=== PATIENT | male | born 1950 | race Caucasian/White ===

== ENCOUNTER 2017-01-07 13:16 | Inpatient (IN) | payer OTHER ==
[2017-01-07] MEDS ORDERED: NS 1,000 ML IV ONE (13:23)
[2017-01-07] MEDS ORDERED: ASPIRIN 81 MG CHEWABLE TAB ONE (13:29)
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
[2017-01-07] MEDS ORDERED: NITROGLYCERIN 0.4 MG BTL SL ONE ×3 (13:30→13:35)
--- NOTE | 2017-01-07 13:34 | CPEKG ---
Heart Rate: 77 RR Interval: 779 P-R Interval: 196 QRSD Interval: 102 QT Interval: 412 QTC Interval: 467 P [place]: 82 QRS [place]: 8 T Wave [place]: 4 EKG Severity - ABNORMAL ECG - EKG Impression: SINUS RHYTHM EKG Impression: ANTERIOR INJURY, EARLY ACUTE INFARCT Electronically Signed By: Afshan Ocampo 07-Jan-2017 21:20:14
[2017-01-07] MEDS ORDERED: ASPIRIN 81 MG CHEWABLE TAB PO ONE (13:35)
[2017-01-07] MEDS ORDERED: fentaNYL 100 MCG/2 ML INJ ONE ×2 (13:36→14:27)
[2017-01-07] MEDS ORDERED: LIDOCAINE 1% 30 ML SDV ONE (13:36)
[2017-01-07 13:37] LABS: % IMMATURE GRANULYOCYTES 0.4 % (0.0-1.1); ABSOLUTE IMMATURE GRANULOCYTES 0.06 10^3/uL (0.00-0.10); ADD DIFF? NO; ADD MORPH? NO; ADD SCAN? NO; ATYPICAL LYMPHOCYTE FLAG 10 (0-99); FRAGMENT RBC FLAG 0 (0-99); HEMATOCRIT 45.5 % (40.0-51.0); HEMOGLOBIN 16.7 g/dL (13.7-17.5); LEFT SHIFT FLG 0 (0-99); LIPEMIA HEMOLYSIS FLAG 90 (0-99); MEAN CELL HEMOGLOBIN 31.4 pg (27.9-34.1); MEAN CELL HEMOGLOBIN CONCENTR. 36.7 g/dL (32.4-36.7); MEAN CELL VOLUME 85.5 fL (81.5-99.8); PLATELET CLUMPS FLAG 10 (0-99); PLATELET COUNT 201 10^3/uL (150-400); RED BLOOD CELL COUNT 5.32 10^6/uL (4.40-6.38)
[2017-01-07] MEDS ORDERED: IOPAMIDOL (ISOVUE 370) 100 ML BTL IV ONE ×2 (13:37→14:19)
[2017-01-07] MEDS ORDERED: HEPARIN 10,000 UNIT/10 ML MDV ONE (13:37)
[2017-01-07] MEDS ORDERED: BIVALIRUDIN 250 MG/5 ML VIAL IV ONE (13:37)
[2017-01-07] MEDS ORDERED: MIDAZOLAM 2 MG/2 ML VIAL ONE ×2 (13:37→14:27)
[2017-01-07] MEDS ORDERED: NITROGLYCERIN 1,500 MCG/15 ML VIAL MISC ONE (13:38)
[2017-01-07] MEDS ORDERED: NITROGLYCERIN/D5W 50 MG/250 ML BOTTLE IV ONE (13:43)
[2017-01-07] MEDS ORDERED: NITROGLYCERIN 0.4 MG BTL SL PRN ×2 (13:45→15:56)
[2017-01-07] MEDS ORDERED: METOPROLOL TARTRATE 5 MG/5 ML INJ IVP ONE (13:45)
[2017-01-07] MEDS ORDERED: LORazepam 2 MG/ML INJ IVP ONE (13:45)
[2017-01-07] MEDS ORDERED: NITROGLYCERIN/DEXTROSE 250 ML IV ONE (13:46)
[2017-01-07 13:53] LABS: ANION GAP 17 mEq/L (8-16); CALCIUM 10.2 mg/dL (8.5-10.4); CARBON DIOXIDE 20 mEq/l (22-31); CHLORIDE 105 mEq/L (97-110); CREATININE 1.3 mg/dL (0.7-1.3); GLOMERULAR FILTRATION RATE 55; GLUCOSE 134 mg/dL (70-100); POTASSIUM 3.7 mEq/L (3.5-5.2); SODIUM 142 mEq/L (134-144)
[2017-01-07 14:05] LABS: TROPONIN I < 0.012 ng/mL (0-0.034)
[2017-01-07] MEDS ORDERED: AMIODARONE HCL 150 MG/3 ML VIAL ONE (14:26)
[2017-01-07] MEDS ORDERED: PHENYLEPHRINE 10 MG/ML SDV ONE (14:36)
[2017-01-07] MEDS ORDERED: PHENYLEPHRINE HCL 100 MCG/ML SYR ONE (14:37)
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
[2017-01-07] MEDS ORDERED: PRASUGREL HCL 10 MG TAB ONE (15:02)
[2017-01-07] MEDS ORDERED: POTASSIUM Cl (KCl) 10 MEQ/100 ML BAG IV ONE (15:19)
[2017-01-07] MEDS ORDERED: ACETAMINOPHEN 325 MG TAB PO PRN (15:56)
[2017-01-07] MEDS ORDERED: PRASUGREL HCL 10 MG TAB PO ONE (15:56)
[2017-01-07] MEDS ORDERED: TEMAZEPAM 15 MG CAP PO PRN (15:56)
[2017-01-07] MEDS ORDERED: ONDANSETRON 4 MG/2 ML VIAL IVP PRN (15:56)
[2017-01-07] MEDS ORDERED: ATROPINE SULFATE 1 MG/10 ML SYR IVP PRN (15:56)
[2017-01-07] MEDS ORDERED: LORazepam 2 MG/ML INJ IVP PRN (15:56)
[2017-01-07] MEDS ORDERED: NS 1,000 ML IV SCH (16:00)
[2017-01-07] MEDS ORDERED: HEPARIN 10,000 UNIT/10 ML MDV IVP ONE (16:19)
[2017-01-07] MEDS ORDERED: HEPARIN 10,000 UNIT/10 ML MDV IVP PRN (16:19)
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
--- NOTE | 2017-01-07 17:07 | CPEKG ---
Heart Rate: 68 RR Interval: 882 P-R Interval: 212 QRSD Interval: 100 QT Interval: 412 QTC Interval: 439 P Bard: 77 QRS Bard: 69 T Wave Bard: 66 EKG Severity - BORDERLINE ECG - EKG Impression: SINUS RHYTHM EKG Impression: BORDERLINE T ABNORMALITIES, ANT-LAT LEADS EKG Impression: PREVIOUS ST ELEVATION NOW ABSENT Electronically Signed By: Aly Hamilton 07-Jan-2017 18:24:19
[2017-01-07] MEDS: HEPARIN/DEXTROSE 500 ML IV SCH (17:27)
[2017-01-07] MEDS: ATORVASTATIN CALCIUM 40 MG TAB PO SCH (17:49)
[2017-01-07] MEDS: CARVEDILOL 3.125 MG TAB PO SCH (17:49)
--- NOTE | 2017-01-07 17:52 | PDDXCAT ---
Diagnostic Cath Note - . 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 LAD: Proximal 100% occlusion. LCX: Minimal irregularities. RCA: Minimal irregularities. EDP: 27 mmHg LVEF: 25 to 30% Wall motion: Severe anterolateral and apical hypokinesis Estimated blood loss: <50ml Closure method: other (Sheath with IABP in place in RFA.) Assessment: 1) Acute anterior STEMI. 2) CAD as described above. 3) Successful PCI of the LAD using a single drug-coated stent. 4) Ischemic cardiomyopathy with severely reduced LV systolic function. Plan: Aggressive secondary prevention. Intervention: Based on the patient's clinical presentation and diagnostic angiography, the decision was made to perform emergent PCI of the left anterior descending. The patient received intravenous Angiomax. A 6 Canadian CLS 3.5 guide catheter was advanced to the left main. An Intuition guidewire was advanced to the apical portion of the LAD. A single pass was performed with a Pronto aspiration catheter. Subsequent angiograms demonstrated roman catholic of JACKIE-III flow. The elapsed time from the patient's arrival to the hospital until the delivery of the first reperfusion device was 67 minutes. At this point the patient experienced reperfusion arrhythmia in the form of sustained ventricular tachycardia. Two synchronized shocks were required to restore normal sinus rhythm. A 300 mg bolus of intravenous amiodarone was administered. A few minutes later there was another episode of sustained ventricular tachycardia that required a single synchronized shock. Angiograms at this point demonstrated residual stenosis in the proximal LAD 0f 60-70% located immediately proximal to the origin of the first diagonal branch and a large septal screw machine tool setter. There was moderate disease up to 40-50% just after the origins of the diagonal and septal. Distally, the LAD exhibited minimal irregularities. Predilatation of the proximal LAD was performed using a 3.0 x 12 mm Emerge balloon. The decision was made to place a stent in the proximal LAD encompassing the target lesion and terminating just prior to the origins of the diagonal and septal in order to avoid placing them in "stent snf". A 3.5 x 20 mm Synergy stent was advanced into position and was deployed at high pressure. Final angiograms demonstrated 0% residual stenosis and JACKIE-III flow. Left ventriculography was performed demonstrating a significant ischemic cardiomyopathy. The patient had hypotension with a systolic pressure of 80 mmHg. He had received 2 intravenous boluses Myron-Synephrine during the interventional portion of the procedure. Based on his hemodynamics and left ventricular function, the decision was made to place an intra-aortic balloon pump. The previously placed 6 Canadian sheath in the right femoral artery was exchanged for an 8 Canadian sheath. A 40 cc intra-aortic balloon pump catheter was advanced into position confirmed by fluoroscopy. Counterpulsation was initiated and cineangiography confirmed full inflation. Patient Problems: Problems Problem Status Onset STEMI (ST elevation myocardial infarction) Acute
[2017-01-07 17:59] LABS: INR 1.64 (0.83-1.16); PROTIME(PATIENT) 19.5 SEC (12.0-15.0)
[2017-01-07 18:05] LABS: CHOLESTEROL 167 mg/dL (140-220); CHOLESTEROL/HDL RATIO 3.63 RATIO (1.00-4.97); HIGH DENSITY LIPOPROTEIN 46 mg/dL (40-65); LDL/HDL RATIO 2.28 RATIO (1.00-3.64); LOW DENSITY LIPOPROTEIN 105 mg/dL (80-100); MAGNESIUM 2.1 mg/dL (1.6-2.3); NON-HIGH DENSITY LIPOPROTEIN 121 mg/dL (90-129); TRIGLYCERIDE 81 mg/dL (40-150); VERY LOW DENSITY LIPOPROTEINS 16 mg/dL (8-25)
[2017-01-07] MEDS ORDERED: SODIUM CL NASAL 45 ML BTL EACHNARE PRN (18:21)
[2017-01-07 18:36] LABS: APTT > 250.0 SEC (23.0-38.0)
[2017-01-07 19:13] LABS: CK-MB INTERPRETATION POSITIVE (NEGATIVE)
[2017-01-07 19:46] LABS: POTASSIUM 4.2 mEq/L (3.5-5.2)
[2017-01-07] MEDS: FAMOTIDINE 20 MG/NACL 50 ML IV SCH (20:15)
[2017-01-07 22:24] LABS: HEMATOCRIT 37.7 % (40.0-51.0); HEMOGLOBIN 13.5 g/dL (13.7-17.5)
[2017-01-08 01:42] LABS: HEMOGLOBIN A1C 5.4 % (4.0-6.0)
[2017-01-08 04:42] LABS: % IMMATURE GRANULYOCYTES 0.4 % (0.0-1.1); ABSOLUTE IMMATURE GRANULOCYTES 0.04 10^3/uL (0.00-0.10); ADD DIFF? NO; ADD MORPH? NO; ADD SCAN? NO; ATYPICAL LYMPHOCYTE FLAG 10 (0-99); FRAGMENT RBC FLAG 0 (0-99); HEMATOCRIT 36.8 % (40.0-51.0); HEMOGLOBIN 13.3 g/dL (13.7-17.5); LEFT SHIFT FLG 0 (0-99); LIPEMIA HEMOLYSIS FLAG 90 (0-99); MEAN CELL HEMOGLOBIN 32.3 pg (27.9-34.1); MEAN CELL HEMOGLOBIN CONCENTR. 36.1 g/dL (32.4-36.7); MEAN CELL VOLUME 89.3 fL (81.5-99.8); MEAN PLATELET VOLUME 10.7 fL (8.7-11.7); PLATELET CLUMPS FLAG 10 (0-99); PLATELET COUNT 119 10^3/uL (150-400); RED BLOOD CELL COUNT 4.12 10^6/uL (4.40-6.38); RED CELL DISTRIBUTION WIDTH 12.6 % (11.5-15.2)
[2017-01-08 04:55] LABS: ALBUMIN 3.1 g/dL (3.5-5.0); ASPARTATE AMINOTRANSFERASE 156 IU/L (17-59); BILIRUBIN,TOTAL 1.3 mg/dL (0.1-1.4); CALCIUM 8.1 mg/dL (8.5-10.4); CARBON DIOXIDE 21 mEq/l (22-31); CHLORIDE 112 mEq/L (97-110); GLOMERULAR FILTRATION RATE > 60; GLUCOSE 105 mg/dL (70-100); LACTATE DEHYDROGENASE 835 IU/L (313-618); SODIUM 142 mEq/L (134-144)
[2017-01-08 05:01] LABS: MAGNESIUM 2.1 mg/dL (1.6-2.3)
[2017-01-08 05:25] LABS: ANION GAP 9 mEq/L (8-16); POTASSIUM 3.6 mEq/L (3.5-5.2)
[2017-01-08] MEDS: LISINOPRIL 2.5 MG TAB PO SCH (08:29)
[2017-01-08] MEDS: ASPIRIN EC 325 MG TAB PO SCH (08:29)
[2017-01-08] MEDS: CARVEDILOL 3.125 MG TAB PO SCH ×2 (08:29→17:43)
[2017-01-08] MEDS: ATORVASTATIN CALCIUM 40 MG TAB PO SCH (08:30)
[2017-01-08] MEDS: PRASUGREL HCL 10 MG TAB PO SCH (08:30)
[2017-01-08] MEDS: FAMOTIDINE 20 MG/NACL 50 ML IV SCH (08:30)
--- NOTE | 2017-01-08 08:37 | CPEKG ---
Heart Rate: 75 RR Interval: 800 P-R Interval: 176 QRSD Interval: 96 QT Interval: 424 QTC Interval: 474 P Vina: 26 QRS Vina: 70 T Wave Vina: 59 EKG Severity - NORMAL ECG - EKG Impression: SINUS RHYTHM Electronically Signed By: Bucky Mchugh 08-Jan-2017 09:16:22
[2017-01-08 08:42] LABS: CK-MB INTERPRETATION POSITIVE (NEGATIVE)
[2017-01-08] MEDS ORDERED: PROTOCOL POTASSIUM 1 DOSE MISC PRN (09:18)
[2017-01-08] MEDS ORDERED: PROTOCOL MAGNESIUM 1 DOSE IV PRN (09:18)
[2017-01-08] MEDS ORDERED: POTASSIUM CL 10 MEQ TAB PO ONE ×2 (09:43→18:00)
--- NOTE | 2017-01-08 10:04 | ECHO ---
[id number] + + [address] : : [place] [address] : : [phone] + + Adult Echocardiographic Report + ------+ :Name: BETHEL MOSS Natasha Date: 01/08/2017 07:34 AM : : Hospital Admission Number: [id number] Locatio n: 252: :: 1950 Gender: Male Height: 72 in : :Age: 66 yrs Race: WH,PTTC Weight: 165 lb : :Reason For Study: Eval LV Fx : : BSA: 2.0 meters 2 : :History: S/P anterior CA : + ------+ MMode/2D Measurements \T\ Calculations IVSd: 0.96 cm LVIDd: 5.1 cm FS: 12.8 % Ao root diam: LVPWd: 0.91 cm LVIDs: 4.4 cm EDV(Teich): 3.5 cm 121.4 ml ACS: 1.9 cm ESV(Teich): 88.1 ml EF(Teich): 27.4 % LVLd ap4: 7.3 cm SV(MOD-sp4): EDV(MOD-sp4): 26.0 ml 81.0 ml LVLs ap4: 7.6 cm ESV(MOD-sp4): 55.0 ml EF(MOD-sp4): 32.1 % Normal Measurement Values: + + :LVIDd (3.5-5.7cm) IVSd (0.6-1.1cm) LVPWd (0.6-1.1cm) Aortic Root (2.0-3.7cm)Left Atrium (1.5-4.0cm): :LV Vol(d) (76-115ml) LV Vol(s) (29-48ml) Ejec Fraction (50-65%)PV Tab (0.6- 1.2m/s) TV Tab (0.4-1.0m/s) : :MV E Tab (0.8-1.0m/s)MV A Tab (0.3-1.0m/s)LVOT Tab (0.7-1.2m/s) Asc Ao Tab ( 0.9-1.8m/s) : + + Doppler Measurements \T\ Calculations MV E max tab: Ao V2 max: AI max tab: LV V1 max: 76.0 cm/sec 92.3 cm/sec 232.8 cm/sec 81.4 cm/sec MV A max tab: Ao max PG: AI max P.7 mmHg LV V1 max P.3 cm/sec 3.4 mmHg AI dec slope: 2.7 mmHg MV E/A: 1.5 143.1 cm/sec2 AI P1/2t: 476.4 msec PA V2 max: TR max tab: 73.3 cm/sec 252.5 cm/sec PA max PG: TR max P.1 mmHg 25.5 mmHg RAP systole: 5.0 mmHg RVSP(TR): 30.5 mmHg Left Ventricle The left ventricle is normal in size. There is normal left ventricular wall thickness. There is basilar to anteroseptal hypokinesis. Ejection Fraction = 25-30%. There is moderate anterior wall akinesis. There is apical hypokinesis. Right Ventricle The right ventricle is normal in size and function. Atria The left atrial size is normal. Right atrial size is normal. Mitral Valve The mitral valve is normal in structure and function. There is mild mitral regurgitation. Tricuspid Valve Normal tricuspid valve. There is trace tricuspid regurgitation. Right ventricular systolic pressure is normal. Aortic Valve The aortic valve is normal in structure and function. The aortic valve is trileaflet. There is no aortic stenosis. Mild aortic regurgitation. Pulmonic Valve The pulmonic valve is not well visualized. There is no pulmonic valvular regurgitation. Great Vessels The aortic root is normal size. Pericardium/Pleural There is no pericardial effusion. Conclusion A complete two-dimensional transthoracic echocardiogram was performed (2D, M-mode, Doppler and color flow Doppler). (1) Left ventricular systolic ejection fraction was moderately to severely reduced - there is moderate anterior (mid to apical) akinesis noted - there is moderate anteroseptal hypokinesis noted (2) No left ventricular hypertrophy (3) Diastolic function was not clearly assessed in this study (4) Grossly normal right ventricular size and function (5) Grossly normal atrial dimensions (6) Mild mitral regurgitation (7) Trileaflet aortic valve with mild insufficiency, but no sclerosis or stenosis (8) Physiologic tricuspid regurgitation - RVSP was grossly normal (9) Poor visualization of the pulmonic valve (10) No pericardial effusion (11) No comparison echocardiograms Final Reading Physician: Richi Irizarry signed on 01/08/2017 10:03 AM Ordering Physician: Bucky Mchugh Performed By: Keyur Cr, RDCS
--- NOTE | 2017-01-08 10:44 | PDCARPN ---
Cardiology Progress Note Chief Complaint: chest pain with syncope in setting of large anterior myocardial infarction Assessment/Plan: Assessment: Patient is a 66 y/o male with history of HTN, who presented to [facility] as an acute, anterior myocardial infarction. Patient was taken to the cardiac lab nurse yesterday with PCI to thrombosed LAD. Ongoing use of IABP. Echocardiogram this morning with ongoing suppression of LVEF (25-30%) with severe anterior/ anteroapical/anteroseptal akinesis. No voiced complaints at present. VT was noted yesterday in the lab nurse with a 20 beat run in the ICU also noted last night. was at bedside. Plan: (1) Would continue IABP for about 24 hours - plan on cessation of therapy in mid afternoon (2) Maintain therapy on Coreg and Zestril for history of ID with anterior wall motion abnormality (3) Statins should continue for HLP (4) ASA for life with CAD/PCI history (5) Effient should continue for minimum of one year (6) Cardiac rehab to be arranged (7) Likely outpatient echocardiogram in 7-10 days (8) Given the events and the ventricular ectopy noted, the patient will need to be fit with a Life Vest for ventricular arrhythmic protection Subjective: No voiced cardiovascular complaints today. No chest pains or pressure. Ongoing back pains (patient typically stretches his back in the morning, but has been unable to to that with the IABP and lines). Reviewed/Discussed With: family, multidisciplinary team Time Spent With Patient: 20 minutes Objective: Vital Signs (8 Hrs) Temp Pulse Resp BP Pulse Ox 01/08/17 10:00 65 14 124/61 H 99 01/08/17 09:00 69 21 H 122/60 H 1 L 01/08/17 08:29 74 127/61 H 01/08/17 08:00 37.3 C 69 17 128/65 H 100 01/08/17 07:00 72 15 108/62 1 L 01/08/17 06:00 37.3 C 68 8 L 110/47 L 100 01/08/17 05:00 37.3 C 67 13 107/45 L 99 01/08/17 04:00 37.2 C 70 18 99/42 L 98 01/08/17 03:00 37.2 C 73 13 106/47 L 97 Intake/Output (24 Hrs) 01/07/17 01/08/17 01/09/17 05:59 05:59 05:59 Intake Total 2526.7 Output Total 1000 60 Balance 1526.7 -60 Intake: Oral (ml) 150 IV Infused (ml) 2376.7 Heparin/Dextrose 500 ml @ 286.7 Per Protocol IV CONT NICOLE Rx#:[id number] Ns 1,000 ml @ 100 mls/hr 1090 IV CONT NICOLE Rx#: [id number] Output: Urine (ml) 1000 60 Catheter 1000 60 Other: Weight 70.307 kg Result Diagrams: 01/08/17 04:05 01/08/17 04:05 Cardiac Labs: Cardiac Lab Results (72 Hrs) 01/08/17 01/07/17 08:00 17:43 CK-MB (CK-2) Fraction 85.40 H 40.80 H Troponin I 27.400 H 6.960 H Telemetry: normal sinus rhythm with ST/T wave changes to the anterior leads Echocardiogram: from 01-08-17 with severe suppression of the LVEF (25-30%) and severe hypo/ akinesis to the anterior wall - Physical Exam Constitutional: WDWN, healthy appearing, no apparent distress Eyes: PERRL, EOMI Ears, Nose, Mouth, Throat: moist mucous membranes Cardiovascular: regular rate and rhythm, no murmurs, no rubs, no gallops, No jugular vein distention Peripheral Pulses: 2+: dorsalis-pedis (R), dorsalis-pedis (L) Respiratory: clear to auscultate bilat, no crackles, no wheezes Gastrointestinal: normoactive bowel sounds Skin: other (right knuckle abrasion. left knee abrasion) Musculoskeletal: no muscular tenderness, no joint effusions Neurologic: AAOx3, CN II-XII grossly intact Psychiatric: cooperative, interactive, following commands ICD10 Worksheet Patient Problems: Problems Problem Status Onset STEMI (ST elevation myocardial infarction) Acute
[2017-01-08] MEDS: HEPARIN/DEXTROSE 500 ML IV SCH (13:07)
[2017-01-08] MEDS: HYDROCODONE/APAP 5/325 TAB PO PRN ×3 (13:27→18:15)
[2017-01-08] MEDS ORDERED: NS 1,000 ML IV SCH (15:00)
--- NOTE | 2017-01-08 15:21 | PDINTPN ---
Spd Tech Progress Note Assessment/Plan: Assessment/plan: 66 active M s/p syncopal event while cycling on [place], found to have acute STEMI with reduced EF and required LAD stent as well as IABP. No pressors required at the moment. * STEMI- management primarily per cards. IABP remains for another 24 hours as echo shows persistent EF 25-30%. Remains on Carvedilol, Lisinopril. * Syncope 2/2 above. 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 Remains on NSR currently with occasional PVCs per RN. Did not require amiodarone * Objective: Vital Signs Temp Pulse Resp BP Pulse Ox 37.5 C 64 12 117/57 L 99 01/08/17 14:00 01/08/17 14:00 01/08/17 14:00 01/08/17 14:00 01/08/17 14:00 Laboratory Results 01/08/17 04:05 01/08/17 04:05 01/07/17 01/08/17 01/09/17 05:59 05:59 05:59 Intake Total 2526.7 Output Total 1000 260 Balance 1526.7 -260 PT 19.5 SEC (12.0-15.0) H 01/07/17 17:43 INR 1.64 (0.83-1.16) H 01/07/17 17:43 Physical Exam - Physical Exam General Appearance: WD/WN, alert, no apparent distress EENT: PERRL/EOMI, normal ENT inspection Neck: full range of motion, supple Respiratory: lungs clear, normal breath sounds, No respiratory distress Cardiac/Chest: normal peripheral pulses, regular rate, rhythm, No edema Abdomen: normal bowel sounds, non-tender, soft, No distended Skin: normal color, warm/dry, No cyanosis Lymphatic: no adenopathy Extremities: normal range of motion, non-tender, other (no hematoma at sheath site in left inguinal) Neuro/Psych: no motor/sensory deficits, alert, normal mood/affect, oriented x 3 ICD10 Worksheet Patient Problems: Problems Problem Status Onset STEMI (ST elevation myocardial infarction) Acute
[2017-01-08] MEDS ORDERED: MAGNESIUM SULF 2 GM/WATER 50 ML IV ONE (17:00)
[2017-01-08 17:17] LABS: POTASSIUM 3.9 mEq/L (3.5-5.2)
--- NOTE | 2017-01-08 17:36 | SUROPNOTE ---
IBLLY Operative Report - Surgery PROCEDURE: Removal of the IABP REASON: 24 hour use of this therapy without patient need at present DETAILS: Heparin was stopped and FemStop was positioned. Sutures were removed and sheath with balloon were removed without difficulty. Manual pressure was held for 7 minutes, and the FemStop was positioned accordingly and inflated to 20 mm Hg higher than patient's systolic pressure. Distal pulses were monitored and the instructions for FemStop were placed in the orders.
[2017-01-08] MEDS: FAMOTIDINE 20 MG TAB PO SCH (20:04)
[2017-01-09 04:38] LABS: HEMATOCRIT 35.2 % (40.0-51.0); HEMOGLOBIN 12.4 g/dL (13.7-17.5); MEAN CELL HEMOGLOBIN 31.9 pg (27.9-34.1); MEAN CELL HEMOGLOBIN CONCENTR. 35.2 g/dL (32.4-36.7); MEAN CELL VOLUME 90.5 fL (81.5-99.8); RED BLOOD CELL COUNT 3.89 10^6/uL (4.40-6.38); RED CELL DISTRIBUTION WIDTH 12.5 % (11.5-15.2)
[2017-01-09 04:56] LABS: MAGNESIUM 2.2 mg/dL (1.6-2.3); POTASSIUM 3.8 mEq/L (3.5-5.2)
--- NOTE | 2017-01-09 08:48 | CPEKG ---
Heart Rate: 73 RR Interval: 822 P-R Interval: 172 QRSD Interval: 102 QT Interval: 420 QTC Interval: 463 P Rumford: 67 QRS Rumford: 56 T Wave Rumford: 92 EKG Severity - ABNORMAL ECG - EKG Impression: SINUS RHYTHM EKG Impression: ABNORMAL T, CONSIDER ISCHEMIA, LATERAL LEADS Electronically Signed By: Bucky Mchugh 10-Jan-2017 09:28:21
--- NOTE | 2017-01-09 09:59 | PDCARPN ---
Cardiology Progress Note Chief Complaint: No complaints this morning. Back pains post IABP pull last night led to a CT to rule out retroperitoneal haematoma (negative study) Assessment/Plan: Assessment: 01-09-17 No cardiovascular complaints this morning. Patient doing much better post IABP pull last night. No chest pains or pressure, no PND or orthopnea. Distal pulses to the lower extremities were 2+ bilaterally. Patient has been up today (eating) and had done well with this activity. No further episodes of ventricular tachycardia have been noted overnight. 01-08-17 Patient is a 66 y/o male with history of HTN, who presented to [facility] as an acute, anterior myocardial infarction. Patient was taken to the cardiac laborer syrup machine yesterday with PCI to thrombosed LAD. Ongoing use of IABP. Echocardiogram this morning with ongoing suppression of LVEF (25-30%) with severe anterior/ anteroapical/anteroseptal akinesis. No voiced complaints at present. VT was noted yesterday in the laborer syrup machine with a 20 beat run in the ICU also noted last night. was at bedside. Plan: (1) Continue therapy on Coreg and Zestil for ischaemia CMP noted (2) Would continue therapy on ASA for life - Effient for minimum of one year (3) Statins for HLP and CAD/PCI history (4) Cardiac rehab has been contacted (5) Will move patient to the PCU and monitor tele (6) Patient to be discharged with Life Vest given the ventricular ectopy that was noted with this event Subjective: No cardiovascular complaints Reviewed/Discussed With: family, multidisciplinary team Time Spent With Patient: 20 minutes Objective: Vital Signs (8 Hrs) Temp Pulse Resp BP Pulse Ox 01/09/17 08:00 37.1 C 84 20 131/73 H 98 01/09/17 07:00 76 126/72 H 01/09/17 06:00 37.2 C 75 8 L 126/72 H 98 01/09/17 05:00 69 10 L 115/69 98 01/09/17 04:00 36.8 C 72 9 L 115/69 97 01/09/17 03:00 68 14 128/67 H 98 01/09/17 02:00 66 12 137/65 H 98 Intake/Output (24 Hrs) 01/08/17 01/09/17 01/10/17 05:59 05:59 05:59 Intake Total 2526.7 3090 Output Total 1000 1035 Balance 1526.7 2055 Intake: Oral (ml) 150 800 IV Infused (ml) 2376.7 2290 Heparin/Dextrose 500 ml @ 286.7 234 Per Protocol IV CONT NICOLE Rx#:[id number] Ns 1,000 ml @ 100 mls/hr 1119 IV AD NICOLE Rx#:[id number] Ns 1,000 ml @ 100 mls/hr 1090 937 IV CONT NICOLE Rx#: [id number] Output: Urine (ml) 1000 1035 Catheter 1000 1035 Other: Weight 70.307 kg Result Diagrams: 01/09/17 04:10 01/09/17 04:10 Cardiac Labs: Cardiac Lab Results (72 Hrs) 01/08/17 01/08/17 01/07/17 16:45 08:00 17:43 CK-MB (CK-2) Fraction 85.40 H 40.80 H Troponin I 17.500 H 27.400 H 6.960 H Telemetry: normal sinus rhythm - Physical Exam Constitutional: WDWN, healthy appearing, no apparent distress Eyes: PERRL, EOMI Ears, Nose, Mouth, Throat: moist mucous membranes Cardiovascular: regular rate and rhythm, no murmurs, no rubs, no gallops, No jugular vein distention Peripheral Pulses: 2+: dorsalis-pedis (R), dorsalis-pedis (L) Respiratory: clear to auscultate bilat, no crackles, no wheezes Gastrointestinal: normoactive bowel sounds Skin: no edema, rash Musculoskeletal: no muscular tenderness Neurologic: AAOx3, CN II-XII grossly intact Psychiatric: cooperative, interactive, following commands ICD10 Worksheet Patient Problems: Problems Problem Status Onset STEMI (ST elevation myocardial infarction) Acute
[2017-01-09] MEDS: FAMOTIDINE 20 MG TAB PO SCH ×2 (10:10→20:34)
[2017-01-09] MEDS: LISINOPRIL 2.5 MG TAB PO SCH (10:10)
[2017-01-09] MEDS: CARVEDILOL 3.125 MG TAB PO SCH ×2 (10:10→17:22)
[2017-01-09] MEDS: ASPIRIN EC 325 MG TAB PO SCH (10:10)
[2017-01-09] MEDS: ATORVASTATIN CALCIUM 40 MG TAB PO SCH (10:10)
[2017-01-09] MEDS: PRASUGREL HCL 10 MG TAB PO SCH (10:11)
[2017-01-09] MEDS ORDERED: POTASSIUM CL 10 MEQ TAB PO ONE ×3 (11:36→20:01)
--- NOTE | 2017-01-09 14:18 | PDINTPN ---
Cigarette Vendor Progress Note Assessment/Plan: Assessment/plan: 66 active M s/p syncopal event while cycling on [place], found to have acute STEMI with reduced EF and required LAD stent as well as IABP. No pressors required at the moment. * STEMI- management primarily per cards. IABP dc'd with concerns for hematoma, but CT showed only 14 mm. Currently stable. Remains on Carvedilol, Lisinopril. Changed to PCU status * Syncope 2/2 above. 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 Remains on NSR currently. Did not require amiodarone. No chnages * 01/09/17 14:16 Subjective: feels well. Only complain has been nasal irritation, currently treated with NS nasal spray. IABP dc'd 01/08 Objective: Vital Signs Temp Pulse Resp BP Pulse Ox 36.8 C 74 18 125/88 H 97 01/09/17 13:32 01/09/17 13:32 01/09/17 13:32 01/09/17 13:32 01/09/17 13:32 Laboratory Results 01/09/17 04:10 01/09/17 04:10 01/08/17 01/09/17 01/10/17 05:59 05:59 05:59 Intake Total 2526.7 3090 Output Total 1000 1035 990 Balance 1526.7 2055 -990 PT 19.5 SEC (12.0-15.0) H 01/07/17 17:43 INR 1.64 (0.83-1.16) H 01/07/17 17:43 Physical Exam - Physical Exam General Appearance: WD/WN, alert, no apparent distress EENT: PERRL/EOMI, normal ENT inspection Neck: full range of motion, supple Respiratory: lungs clear, normal breath sounds, No respiratory distress, No rales, No rhonchi Cardiac/Chest: normal peripheral pulses, regular rate, rhythm, No edema Abdomen: normal bowel sounds, non-tender, soft, No distended Skin: normal color, warm/dry Lymphatic: no adenopathy Extremities: non-tender, No pedal edema Neuro/Psych: no motor/sensory deficits, alert, normal mood/affect, oriented x 3 ICD10 Worksheet Patient Problems: Problems Problem Status Onset STEMI (ST elevation myocardial infarction) Acute
[2017-01-09 17:10] LABS: POTASSIUM 3.9 mEq/L (3.5-5.2)
[2017-01-10 05:55] LABS: MAGNESIUM 2.1 mg/dL (1.6-2.3); POTASSIUM 4.1 mEq/L (3.5-5.2)
[2017-01-10] MEDS: CARVEDILOL 3.125 MG TAB PO SCH (08:47)
[2017-01-10] MEDS: LISINOPRIL 2.5 MG TAB PO SCH (08:47)
[2017-01-10] MEDS: ATORVASTATIN CALCIUM 40 MG TAB PO SCH (08:47)
[2017-01-10] MEDS: ASPIRIN EC 325 MG TAB PO SCH (08:47)
[2017-01-10] MEDS: FAMOTIDINE 20 MG TAB PO SCH (08:47)
[2017-01-10] MEDS: PRASUGREL HCL 10 MG TAB PO SCH (08:47)
--- NOTE | 2017-01-10 14:59 | PDCARPN ---
Cardiology Progress Note Chief Complaint: no voiced cardiovascular complaints Assessment/Plan: Assessment: 01-10-17 No complaints this morning. Patient was moved from the ICU to the PCU with increased mobility achieved. No chest pains or pressure. No PND or orthopnea. Possible awareness of beta blockers (reduced heart rate and mild fatigue?). was at bedside. Ongoing work to get the patient set up with LifeVest given the events surrounding the hospitalization as well as the ventricular ectopy noted. 01-09-17 No cardiovascular complaints this morning. Patient doing much better post IABP pull last night. No chest pains or pressure, no PND or orthopnea. Distal pulses to the lower extremities were 2+ bilaterally. Patient has been up today (eating) and had done well with this activity. No further episodes of ventricular tachycardia have been noted overnight. 01-08-17 Patient is a 66 y/o male with history of HTN, who presented to [facility] as an acute, anterior myocardial infarction. Patient was taken to the cardiac medical laboratory assistant yesterday with PCI to thrombosed LAD. Ongoing use of IABP. Echocardiogram this morning with ongoing suppression of LVEF (25-30%) with severe anterior/ anteroapical/anteroseptal akinesis. No voiced complaints at present. VT was noted yesterday in the medical laboratory assistant with a 20 beat run in the ICU also noted last night. was at bedside. Plan: (1) Continue therapy on Coreg and Zestil for ischaemia CMP noted (2) Would continue therapy on ASA for life - Effient for minimum of one year (3) Statins for HLP and CAD/PCI history (4) Cardiac rehab has been contacted (5) LifeVest has been contacted and should be coming to the hospital today Subjective: No cardiovascular complaints Reviewed/Discussed With: family, multidisciplinary team Time Spent With Patient: 20 minutes Objective: Vital Signs (8 Hrs) Temp Pulse Resp BP Pulse Ox 01/10/17 11:25 67 15 134/80 H 95 01/10/17 08:07 36.6 C 70 19 130/62 H 90 L Intake/Output (24 Hrs) 01/09/17 01/10/17 01/11/17 05:59 05:59 05:59 Intake Total 3090 400 Output Total 1035 990 Balance 2055 -590 Intake: Oral (ml) 800 400 IV Infused (ml) 2290 Heparin/Dextrose 500 ml @ 234 Per Protocol IV CONT NICOLE Rx#:[id number] Ns 1,000 ml @ 100 mls/hr 1119 IV AD NICOLE Rx#:[id number] Ns 1,000 ml @ 100 mls/hr 937 IV CONT NICOLE Rx#: [id number] Output: Urine (ml) 1035 990 Catheter 1035 340 Urinal 650 Other: Number of Voids Toilet 2 Urinal 1 Result Diagrams: 01/09/17 04:10 01/10/17 04:45 Cardiac Labs: Cardiac Lab Results (72 Hrs) 01/08/17 01/08/17 01/07/17 16:45 08:00 17:43 CK-MB (CK-2) Fraction 85.40 H 40.80 H Troponin I 17.500 H 27.400 H 6.960 H Telemetry: no further ventricular ectopy noted - Physical Exam Constitutional: WDWN, healthy appearing, no apparent distress Eyes: PERRL, EOMI Ears, Nose, Mouth, Throat: moist mucous membranes Cardiovascular: regular rate and rhythm, no murmurs, no rubs, no gallops Peripheral Pulses: 2+: dorsalis-pedis (R), dorsalis-pedis (L) Respiratory: clear to auscultate bilat, no crackles, no wheezes Gastrointestinal: normoactive bowel sounds Skin: no edema, rash Musculoskeletal: no muscular tenderness Neurologic: AAOx3, CN II-XII grossly intact Psychiatric: cooperative, interactive, following commands ICD10 Worksheet Patient Problems: Problems Problem Status Onset STEMI (ST elevation myocardial infarction) Acute
--- NOTE | 2017-01-10 15:04 | PDDCSUM ---
Discharge Summary Discharge Summary: ADMISSION DATE: 01-07-17 DISCHARGE DATE: 01-10-17 ADMISSION DIAGNOSIS: acute, anterior myocardial infarction DISCHARGE DIAGNOSIS: anterior myocardial infarction s/p PCI to LAD occlusion ischaemic cardiomyopathy with reduction in LVEF to 25% PROCEDURES: defibrillation in the hatchery laborer for sustained ventricular tachycardia angiogram percutaneous intervention to the LAD occlusion (proximal LAD with 3.5X20 mm Synergy stent) intraaortic balloon pump support echocardiography ICU monitoring telemetry monitoring on floor CONSULTATIONS: cardiology pulmonary/critical care BRIEF SUMMARY OF HOSPITAL STAY Patient presented to the ER via private transport (arrived at 1324) and was taken emergently to the cardiac hatchery laborer (vessel open at 1429). Several defibrillations were required given sustained episodes of ventricular tachycardia. LV gram with severe reduction in LVEF noted (20-25%) and the decision to place an IABP was made. Patient was transferred to the ICU, in critical, but stable condition. No pressor support was implemented. After 24 hours of IABP, this therapy was discontinued and the patient subsequently transferred to the floor. One the first night, non sustained VT was noted, but did not require therapy. No further ventricular ectopy was noted. On the third day, request for LifeVest was made given the circumstances of the event and the suppression of LVEF noted. MEDICATIONS: (1) ASA (81 mg per day) (2) Effient (10 mg per day) (3) Lipitor 40 mg PO QHS (4) Zestril 2.5 mg per day (5) Coreg 3.125 mg twice per day FOLLOW UP RECOMMENDATIONS: Patient to establish cardiology following at [facility] within 5-7 days. Would consider repeat echocardiography after 2-4 weeks. Maintain prescribed therapies for minimum of one year. Start cardiac rehab as soon as possible. LifeVest for minimum of one month (up to three). Consider use of 30 day event monitor to assess for ventricular ectopy. If suppression of LVEF continues to be noted, ICD may be indicated. With any questions or concerns, please contact [facility]. case liner : Dr. Raisa Mchugh General cardiology (in house): Dr. Richa Hamilton
[2017-01-10 15:11] VITALS: BP 110/76; PULSE 64; RESP 16; TEMP 97.5; O2SAT 96
[2017-01-10 16:31] LABS: 2C19S INTERPRETATION See Comments
== END 2017-01-10 16:46 | disposition home or self-care (01) | DRG 247 ==
LOC: F2N 15:32 → F2W 01-09 13:30
PROVIDERS: ADMIT Internal Medicine Interventional Cardiology; ATTEND Internal Medicine Interventional Cardiology
PROC: 4A023N7 Measurement of Cardiac Sampling and Pressure, Left Heart, Percutaneous Approach (ICD-10-PCS; principal; 2017-01-08)
PROC: 027034Z Dilation of Coronary Artery, One Artery with Drug-eluting Intraluminal Device, Percutaneous Approach (ICD-10-PCS; principal; 2017-01-08)
PROC: B2111ZZ Fluoroscopy of Multiple Coronary Arteries using Low Osmolar Contrast (ICD-10-PCS; principal; 2017-01-08)
PROC: B2151ZZ Fluoroscopy of Left Heart using Low Osmolar Contrast (ICD-10-PCS; principal; 2017-01-08)
DX: I21.09 ST elevation (STEMI) myocardial infarction involving other coronary artery of anterior wall (principal); I25.10 Atherosclerotic heart disease of native coronary artery without angina pectoris; I25.5 Ischemic cardiomyopathy; I47.2 Ventricular tachycardia; I10 Essential (primary) hypertension; R73.03 Prediabetes; Z87.891 Personal history of nicotine dependence; Z85.038 Personal history of other malignant neoplasm of large intestine
CPT/HCPCS: 81225-90; 85520-90; 92523-GN; 96374; C1725; C1757; C1769; C1874; C1887; C9606; J0282; J0583; J1644; J2060; J2250; J2370; J3010; Q9967